=== PATIENT | male | born 1960 | race Caucasian/White ===

== ENCOUNTER 2018-11-08 22:16 | Emergency (ER) | payer MEDICAID ==
--- NOTE | 2018-11-08 22:49 | ED Physician Chart ---
ED Chief Complaint/HPI - Patient Information Date Seen:: 11/08/18 Time Seen:: 22:35 Chief Complaint:: left testicular swelling History of Present Illness:: Patient has had left testicular swelling and pain for the last 3-4 weeks. No vomiting. Allergies:: Allergies Allergy/AdvReac Type Severity Reaction Status Date / Time No Known Allergies Allergy Verified 11/08/18 22:18 Vitals:: Vital Signs - 8 hr 11/08/18 22:20 Temp 99.2 F HR 82 RR 18 BP 149/101 O2 Sat % 95 Historian:: Patient Review:: Nurse's Note Reviewed ED Review of Systems - Review of Systems General/Constitutional: No fever, No chills, No weight loss, No weakness, No diaphoresis, No edema, No loss of appetite Skin: No skin lesions, No rash, No bruising Head: No headache, No light-headedness Eyes: No loss of vision, No pain, No diplopia ENT: No earache, No nasal drainage, No sore throat, No tinnitus Neck: No neck pain, No swelling, No thyromegaly, No stiffness, No mass noted Cardio Vascular: No chest pain, No palpitations, No PND, No orthopnea, No edema Pulmonary: No SOB, No cough, No sputum, No wheezing GI: No nausea, No vomiting, No diarrhea, No pain, No melena, No hematochezia, No constipation, No hematemesis G/U: Other (left testicular swelling) Musculoskeletal: No bone or joint pain, No back pain, No muscle pain Endocrine: No polyuria, No polydipsia Psychiatric: No prior psych history, No depression, No anxiety, No suicidal ideation Hematopoietic: No bruising, No lymphadenopathy Allergic/Immuno: No urticaria, No angioedema Neurological: No syncope, No focal symptoms, No weakness, No paresthesia, No headache, No seizure, No dizziness, No confusion, No vertigo ED Past Medical History - Past Medical History Past Medical History: HTN Family History: None Social History: Smoker Surgical History: Cholecystectomy, other (cardiac pacemaker 10 months ago) Psychiatricy History: None Medication: Reviewed Family Medical History - Family Member Mother History Unknown: Yes ED Physical Exam - Physical Examination General/Constitutional: Awake, Well-developed, well-nourished, Alert, No distress Head: Atraumatic Eyes: Lids, conjuctiva normal, PERRL Other Skin comments:: no redness of skin around pacemaker site. ENMT: External ears, nose nl, Lips, teeth, gums nl Neck: No nuchal rigidity Respiratory: Nl effort/Exclusion, Clear to Auscultation Cardio Vascular: RRR, No murmur, gallop, rubs GI: No tenderness/rebounding/guarding, No organomegaly Other comments:: Left hemiscrotum with a 8 cm in diameter mass; right testicle normal Extremities: Normal digits & nails Neuro/Psych: No focal deficits ED Assessment - Assessment General Assessment: Patient has a left inguinal hernia. Patient did not allow me to try to reduce it because of pain. Patient referred to Dr. Medina our general surgeon on-call. ED Septic Shock - . Is Septic Shock (SBP<90, OR Lactate>4 mmol\L) present?: No - <6hrs of presentation: Vital Signs: Vital Signs - 8 hr 11/08/18 22:20 Temp 99.2 F HR 82 RR 18 BP 149/101 O2 Sat % 95 ED Reassessment (Disposition) - Reassessment Reassessment Condition:: Unchanged - Diagnosis Diagnosis:: left inguinal hernia - Aftercare/Follow up Instructions Aftercare/Follow-Up Instructions:: Refer to Discharge Instructions - Patient Disposition Discharge/Transfer:: Home Condition at Disposition:: Stable, Unchanged
== END 2018-11-08 23:12 | disposition home or self-care (01) ==
LOC: ER 22:16
DX: K40.90 Unilateral inguinal hernia, without obstruction or gangrene, not specified as recurrent (principal); I10 Essential (primary) hypertension; F17.200 Nicotine dependence, unspecified, uncomplicated; Z90.49 Acquired absence of other specified parts of digestive tract
CPT/HCPCS: Z7502